=== PATIENT | male | born 1965 | race African-American/Black ===

== ENCOUNTER 2023-12-26 14:27 | Emergency (ER) | payer MEDICAID ==
[~2023-12-26] VITALS: Ht 180.3 cm; Wt 99.0 kg
[2023-12-26 14:46] VITALS: TEMP 98.8; O2SAT 100
[2023-12-26 19:58] LABS: HEMOGLOBIN. 16.2 g/dL (14.0-18.0); MEAN CORPUSCULAR HEMOGLOBIN 32.7 pg (28.0-32.0); MEAN CORPUSCULAR HGB CONC 32.4 g/dL (31.0-37.0); MEAN CORPUSCULAR VOLUME 100.9 fL (80.0-94.0); RED BLOOD CELL COUNT 4.95 mill/uL (4.7-6.1); RED CELL DISTRIBUTION WIDTH 15.2 % (11.6-14.6); WHITE BLOOD COUNT 4.4 x1000/uL (4.5-11.0)
[2023-12-26 19:59] LABS: CHLORIDE 106 mEq/L (98-107); POTASSIUM 4.2 mEq/L (3.5-5.1); SODIUM 140 mEq/L (136-145)
[2023-12-26 20:00] LABS: CALCIUM 9.8 mg/dL (8.7-10.4); CARBON DIOXIDE 28 mEq/L (21-32)
[2023-12-26 20:01] LABS: DIFFERENTIAL COMMENT 1
[2023-12-26 20:05] LABS: GLUCOSE 88 mg/dL (70-105); UREA NITROGEN BLOOD 10 mg/dL (9-23)
[2023-12-26] MEDS ORDERED: TOPUD PO (20:15)
[2023-12-26] MEDS ORDERED: IBUP-2028 MT (20:15)
[2023-12-26 20:22] LABS: MEAN PLATELET VOLUME 11.4 fl (7.4-10.4); PLATELET 153 x1000/uL (130-400)
[2023-12-26 20:24] LABS: PLATELET ESTIMATE NORMAL
[2023-12-26] MEDS: KETOROLAC 30MG/ML VIAL IM ONE (21:00)
[2023-12-26] MEDS: ACETAMINOPHEN 325MG TABLET PO ONE (21:00)
[2023-12-26 21:06] VITALS: BP 135/92; PULSE 82; RESP 18; O2SAT 99
== END 2023-12-26 21:07 | disposition home or self-care (01) ==
LOC: ER 14:27
DX: G44.209 Tension-type headache, unspecified, not intractable (principal); I10 Essential (primary) hypertension
CPT/HCPCS: 99285; 70450; 80048; 85025; 36415; 96372; J1885